=== PATIENT | male | born 1985 | race African-American/Black ===

== ENCOUNTER 2019-07-06 12:28 | Emergency (ER) | payer SELFPAY ==
[2019-07-06 12:45] VITALS: BP 146/90; PULSE 100; RESP 20; TEMP 36.4; O2SAT 100
[2019-07-06 13:12] VITALS: RESP 18
--- NOTE | 2019-07-06 14:17 | ED.GENADULT ---
HPI - General Adult General Chief complaint: Unspecified Stated complaint: sinus infection for three months Time Seen by Provider: 07/06/19 12:53 Source: patient Mode of arrival: ambulatory Limitations: no limitations History of Present Illness HPI narrative: This is a 33-year-old male that presents the emergency department for sinus issues x3 months. Reports he was seen by an urgent care for this 2 weeks ago and placed on Augmentin with little relief. Reports intermittent nasal congestion and sinus pain. He has been taking meyx-ryl-[id number] decongestants with little relief. Denies fever, cough, or sore throat. Related Data Home Medications Medication Instructions Recorded Confirmed No Home Medications 07/06/19 07/06/19 Allergies Allergy/AdvReac Type Severity Reaction Status Date / Time No Known Allergies Allergy Verified 07/06/19 12:47 Review of Systems Review of Systems: Narrative: CONSTITUTIONAL: Denies fever ENT: Reports rhinorrhea, congestion. Denies sore throat, or otalgia. RESPIRATORY: Denies cough or dyspnea. All systems reviewed & are unremarkable except as noted in HPI and below PMFSH Surgical History Surgical History (Updated 06/20/19 @ 09:48 by KENJI Lowery) No significant past surgical history Social History Social History (Updated 06/20/19 @ 09:48 by KENJI Lowery) Smoking status: Never smoker Alcohol intake: never Substance use: never Gender identity (if verbalized by the patient): Male Exam Narrative: Exam Narrative: GENERAL: Well-appearing, well-nourished, and in no acute distress. HEAD: Normocephalic, atraumatic. EYES: EOMI. ENT: Turbinates swollen and pale. Mucous membranes moist. Oropharynx without tonsillar hypertrophy exudate or other lesions. Bilateral TMs pearly kilgore non-bulging. Tender to palpation of the maxillary sinuses bilaterally NECK: Supple. No adenopathy or masses. CHEST: Clear to auscultation. No respiratory distress. No wheezes rales or rhonchi HEART: Regular rate and rhythm. No murmur heard. Normal peripheral pulses. EXTREMITIES: Normal range of motion. No edema. SKIN: Warm, dry, no rash. NEURO: No focal deficits. Alert and oriented x3. PSYCH: Normal mood and affect Course Vital Signs Vital signs: Vital Signs Temperature 97.6 F 07/06/19 12:45 Pulse Rate 100 07/06/19 12:45 Respiratory Rate 20 07/06/19 12:45 Blood Pressure 146/90 H 07/06/19 12:45 Pulse Oximetry 100 07/06/19 12:45 Temperature 97.6 F 07/06/19 12:45 Pulse Rate 100 07/06/19 12:45 Respiratory Rate 18 07/06/19 13:12 Blood Pressure 146/90 H 07/06/19 12:45 Pulse Oximetry 100 07/06/19 12:45 Medical Decision Making MDM Narrative Medical decision making narrative: Patient presents to the emergency department for recurrent sinus problems over the last couple of months. He is afebrile and nontoxic-appearing. Denies any cough. Lungs are clear. No other symptoms to be concerned for influenza. Patient has been taking [id number]-eth-[id number] decongestants with little relief. Patient was instructed to take Flonase and Zyrtec daily. He was instructed on nasal rinses. He was instructed that if his symptoms are not relieved he should follow-up with an ENT doctor. Patient was given warnings to return to the ER Vital Signs Vital Signs: Vital Signs Temperature 97.6 F 07/06/19 12:45 Pulse Rate 100 07/06/19 12:45 Respiratory Rate 20 07/06/19 12:45 Blood Pressure 146/90 H 07/06/19 12:45 Pulse Oximetry 100 07/06/19 12:45 Temperature 97.6 F 07/06/19 12:45 Pulse Rate 100 07/06/19 12:45 Respiratory Rate 18 07/06/19 13:12 Blood Pressure 146/90 H 07/06/19 12:45 Pulse Oximetry 100 07/06/19 12:45 Critical Care Time Critical Care Time Critical Care Time: No Discharge Plan Discharge Clinical Impression: Chronic maxillary sinusitis Patient Disposition: Home, Self-Care Condition: Stable Instructions: Sinusit
== END 2019-07-06 14:37 | disposition home or self-care (01) ==
PROVIDERS: Emergency Provider Emergency Medicine
DX: J32.0 Chronic maxillary sinusitis (principal)
CPT/HCPCS: 99281